=== PATIENT | male | born 1975 ===

== ENCOUNTER → 2016-12-25 | Day surgery (SDC) | payer OTHER ==
[~2016-12-25] MED LIST: NO MEDICATIONS
--- NOTE | ~2016-12-25 | OR ---
Unit #: [id number] #: [id number] Patient: RUDDY MENDOZA [id number] [address] [place], [place] [address] [id number] MR#: [id number] NAME: RUDDY MENDOZA ROOM: Date of Procedure: 12/25/2016 Admission Date: 12/25/2016 Surgeon: Khanh Amaya M.D. : 1975 Attending Physician: Khanh Amaya M.D. OPERATIVE REPORT PREOPERATIVE DIAGNOSIS Multiple subcutaneous nodules of right and left upper extremity and right anterior thigh. POSTOPERATIVE DIAGNOSIS Multiple subcutaneous nodules of right and left upper extremity and right anterior thigh. PROCEDURE PERFORMED Excisional biopsy of subcutaneous mass, right anterior thigh 1 cm and excision of subcutaneous mass, right forearm 1 x 1 cm with primary closure. ANESTHESIA 1% Xylocaine plain local anesthesia. FINDINGS Each was fibrous type of neoplasm and was sent to pathology. SPECIMENS Sent to pathology. COMPLICATIONS None apparent. CONDITION The patient tolerated the procedure well. INDICATIONS FOR PROCEDURE The patient is a 41-year-old male, who has noticed the development over the years of multiple subcutaneous masses of his face, arms, and legs. 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 DESCRIPTION OF PROCEDURE After obtaining informed consent using [employer] surgical instrument maker [employer], the patient was brought to the operating room and after sterile prep and drape of his right upper extremity and right anterior thigh, had each area anesthetized with 1% Xylocaine plain local anesthesia. An incision was made over the skin in the area of the right anterior thigh and taken down to the level of subcutaneous mass. It was excised completely with the hemostasis being obtained with hemostats and 3-0 Vicryl ties. The wound was irrigated and hemostasis was obtained with the Bovie, infiltrated with Unit #: [id number] #: [id number] Patient: RUDDY MENDOZA additional local anesthesia and closed with interrupted 3-0 nylon vertical mattress sutures. At this point in time, an incision was made elliptically around the subcutaneous mass of his right forearm. It was taken down through the skin to the subcutaneous tissues. It was excised sharply circumferentially and sent to pathology. The wound was irrigated and hemostasis was obtained with the Bovie, infiltrated with additional local anesthesia and closed with interrupted 3-0 nylon vertical mattress sutures. Dry dressing and Tegaderm dressing were placed over each site. Needle counts, sponge counts, and instrument counts were all correct as reported by the scrub nurse x2. The patient went from the operative room to recovery room in stable condition. Dictated by.Bigg. Rc Lang/bandar TD: 12/25/2016 16:25 JOB #: [id number] CC: [facility] Clarissa Cohen Aprn OPERATIVE REPORT Page 1 of 1 X Khanh Amaya MD X PROCEDURE OPERATIVE NOTE
== END | disposition home or self-care (01) ==
LOC: CSUR 11:25
DX: L94.8 Other specified localized connective tissue disorders (principal); M79.89 Other specified soft tissue disorders
CPT/HCPCS: 88305